=== PATIENT | female | born 2000 | race Caucasian/White ===

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

== ENCOUNTER 2021-02-09 21:28 | Emergency (ER) | payer OTHER ==
[2021-02-09 21:35] VITALS: BP 116/69; PULSE 81; RESP 16; TEMP 98.2
[2021-02-09 22:01] LABS: Appearance,Urine Clear (Clear); Bilirubin,Urine Negative (Negative); Blood,Urine Trace (Negative); Color,Urine Yellow; Glucose,Urine (UA) Negative (Negative); Ketones,Urine Negative (Negative); Leukocyte Esterase,Urine Negative (Negative); Mucus,Urine Rare /hpf; Nitrite,Urine Negative (Negative); PH, Urine 5.5 (5.0-8.0); Protein,Urine Negative (Negative); RBC,Urine 2 /hpf (0-5); Specific Gravity,Urine 1.016 (1.001-1.035); Squamous Epithelial Cell,Urine 4 /hpf (0-4); Urobilinogen,Urine <2.0 mg/dL (<2.0); WBC,Urine 6 /hpf (0-5)
[2021-02-09] MEDS ORDERED: CEPHALEXIN 500 MG CAP PO STA (22:29)
[2021-02-09] MEDS ORDERED: PHENAZOPYRIDINE 200 MG TAB PO STA (22:29)
--- NOTE | 2021-02-09 22:31 | ED ---
Female Urogenital HPI - General Chief complaint: Urogenital Stated complaint: Poss UTI Source: patient Mode of arrival: ambulatory - History of Present Illness Initial comments: 20-year-old female who presents emergency room with reported UTI symptoms. States she's had increased frequency of urination as well as dysuria. Symptoms started today. Has not taken any medications at home for her symptoms. She denies fevers, chills, nausea or vomiting. No flank pain. No abnormal vaginal bleeding or discharge. No concern for . Denies concern for such transmitted infections. No diarrhea, constipation, melenic stools or hematochezia. No other alleviating, precipitating or modifying factors Last Menstrual Period: 02/08/21 - Related Data Home Medications Medication Instructions Recorded Confirmed Norgestimate-Ethinyl Estradiol 1 tab PO HS 01/16/17 02/23/18 [Tri-Sprintec Tablet] Escitalopram [Lexapro] 10 mg PO DAILY 02/23/18 02/23/18 Previous Rx's Medication Instructions Recorded Cephalexin [Keflex] 500 mg PO Q12HR 1 Days #14 cap 02/09/21 Phenazopyridine [Pyridium] 200 mg PO TID #6 tablet 02/09/21 Allergies Allergy/AdvReac Type Severity Reaction Status Date / Time No Known Allergies Allergy Verified 02/09/21 21:35 Review of Systems ROS Statement: Those systems with pertinent positive or pertinent negative responses have been documented in the HPI. ROS Other: All systems not noted in ROS Statement are negative. Past Medical History Past Medical History: GERD/Reflux Additional Past Medical History / Comment(s): headaches History of Any Multi-Drug Resistant Organisms: None Reported Past Surgical History: No Surgical Hx Reported Past Psychological History: Depression Smoking Status: Never smoker Past Alcohol Use History: None Reported Past Drug Use History: None Reported Course Vital Signs 02/09/21 21:32 Temperature 98.2 F Pulse Rate 81 Respiratory 16 Rate Blood Pressure 116/69 O2 Sat by Pulse 100 Oximetry Medical Decision Making - Medical Decision Making Upon arrival patient was placed into the hallway. She does provide a urine sample. I discussed diagnosis, differential and treatment options. Patient will be given a dose of antibiotics for her abnormal UA. Specimen will be sent for urine culture. I did discuss the need to follow up with her primary care doctor to ensure improvement in her symptoms. Offered pelvic exam and STD check however the patient refused. She is to return to the emergency room for any new or worsening symptoms per patient was discharged home to condition - Lab Data Lab Results 02/09/21 Range/Units 21:38 Urine Color Yellow Urine Appearance Clear (Clear) Urine pH 5.5 (5.0-8.0) Ur Specific [place] 1.016 (1.001-1.035) Urine Protein Negative (Negative) Urine Glucose (UA) Negative (Negative) Urine Ketones Negative (Negative) Urine Blood Trace H (Negative) Urine Nitrite Negative (Negative) Urine Bilirubin Negative (Negative) Urine Urobilinogen <2.0 (<2.0) mg/dL Ur Leukocyte Esterase Negative (Negative) Urine RBC 2 (0-5) /hpf Urine WBC 6 H (0-5) /hpf Ur Squamous Epith Cells 4 (0-4) /hpf Urine Mucus Rare H (None) /hpf Disposition Clinical Impression: Dysuria, Abnormal urinalysis Disposition: HOME SELF-CARE Condition: Stable Instructions (If sedation given, give patient instructions): Urinary Tract Infection in Women (ED) Additional Instructions: Please follow up with your doctor in 2-4 days to ensure your symptoms improve. Return to the ED for any new or worsening symptoms. Prescriptions: Cephalexin [Keflex] 500 mg PO Q12HR 1 Days #14 cap Phenazopyridine [Pyridium] 200 mg PO TID #6 tablet Is patient prescribed a controlled substance at d/c from ED?: No Referrals: Josiah Kathleen DO [Primary Care Provider] - 1-2 days Time of Disposition: 22:31
== END 2021-02-09 22:51 | disposition home or self-care (01) ==
LOC: EC 21:28
DX: R30.0 Dysuria (principal); R82.90 Unspecified abnormal findings in urine; K21.9 Gastro-esophageal reflux disease without esophagitis; F32.9 Major depressive disorder, single episode, unspecified; Z79.899 Other long term (current) drug therapy
CPT/HCPCS: 81001; 81025; 99283

== ENCOUNTER 2021-04-29 11:47 | Emergency (ER) | payer OTHER ==
[2021-04-29 12:40] VITALS: BP 107/71; PULSE 84; RESP 20; TEMP 98.5
[2021-04-29 12:52] LABS: Appearance,Urine Clear (Clear); Bacteria,Urine Rare /hpf; Bilirubin,Urine Negative (Negative); Blood,Urine Trace (Negative); Color,Urine Light Yellow; Glucose,Urine (UA) Negative (Negative); Ketones,Urine Negative (Negative); Leukocyte Esterase,Urine Moderate (Negative); Nitrite,Urine Negative (Negative); Protein,Urine Negative (Negative); RBC,Urine 1 /hpf (0-5); Specific Gravity,Urine 1.009 (1.001-1.035); Squamous Epithelial Cell,Urine 5 /hpf (0-4); Urobilinogen,Urine <2.0 mg/dL (<2.0); WBC,Urine 3 /hpf (0-5)
--- NOTE | 2021-04-29 15:20 | ED ---
General Adult HPI - General Chief complaint: Abdominal Pain Stated complaint: Kamara pain on left side Time Seen by Provider: 04/29/21 15:00 Source: patient Mode of arrival: ambulatory Limitations: no limitations - History of Present Illness Initial comments: 20-year-old female presents to the emergency Department with complaints of left- sided rib pain. Patient states the pain has been ongoing for a week. Denies injury or trauma. Pain worsens with exertional activity and palpation; pain- free at rest. States she did not take anything for pain prior to arrival, and declines any at this time. Patient denies difficulty breathing or pain with deep inspiration. Denies cough, fever, chills, shortness of breath, or nausea and vomiting. - Related Data Home Medications Medication Instructions Recorded Confirmed Norgestimate-Ethinyl Estradiol 1 tab PO HS 01/16/17 02/23/18 [Tri-Sprintec Tablet] Escitalopram [Lexapro] 10 mg PO DAILY 02/23/18 02/23/18 Previous Rx's Medication Instructions Recorded Cephalexin [Keflex] 500 mg PO Q12HR 1 Days #14 cap 02/09/21 Phenazopyridine [Pyridium] 200 mg PO TID #6 tablet 02/09/21 Ibuprofen 600 mg PO Q6H PRN #20 tab 04/29/21 Allergies Allergy/AdvReac Type Severity Reaction Status Date / Time No Known Allergies Allergy Verified 04/29/21 12:40 Review of Systems ROS Statement: Those systems with pertinent positive or pertinent negative responses have been documented in the HPI. ROS Other: All systems not noted in ROS Statement are negative. Past Medical History Past Medical History: GERD/Reflux Additional Past Medical History / Comment(s): headaches History of Any Multi-Drug Resistant Organisms: None Reported Past Surgical History: No Surgical Hx Reported Past Psychological History: Depression Smoking Status: Vaper Past Alcohol Use History: None Reported Past Drug Use History: None Reported General Exam Limitations: no limitations (Well-developed, well-nourished female in no acute distress. Initial temperature 98.5, pulse 84, respirations 20, blood pressure 107/71, pulse ox 99% on room air.) General appearance: alert, in no apparent distress Neck exam: Present: normal inspection. Absent: tenderness, meningismus, lymphadenopathy Respiratory exam: Present: normal lung sounds bilaterally, chest wall tenderness (Left lower anterolateral chest wall tenderness along the 7th-9th rib line). Absent: respiratory distress, wheezes, rales, rhonchi, stridor, accessory muscle use, decreased breath sounds Cardiovascular Exam: Present: regular rate, normal rhythm, normal heart sounds. Absent: systolic murmur, diastolic murmur, rubs, gallop, clicks GI/Abdominal exam: Present: soft, normal bowel sounds. Absent: distended, tenderness, guarding, rebound, rigid Extremities exam: Present: normal inspection, full ROM, normal capillary refill. Absent: tenderness, pedal edema, joint swelling, calf tenderness Back exam: Present: normal inspection, full ROM. Absent: CVA tenderness (R), CVA tenderness (L) Neurological exam: Present: alert, oriented X3, CN II-XII intact Psychiatric exam: Present: normal affect, normal mood Skin exam: Present: warm, dry, intact, normal color. Absent: rash Course Vital Signs 04/29/21 12:38 Temperature 98.5 F Pulse Rate 84 Respiratory 20 Rate Blood Pressure 107/71 O2 Sat by Pulse 99 Oximetry Medical Decision Making - Medical Decision Making 20-year-old well-appearing female is evaluated for left anterolateral chest wall and rib pain. Upon exam, patient reports tenderness upon palpation to the seventh, eighth, and ninth ribs extending from the mid clavicular line to the mid axillary line. Pain is also reproducible with movement of the left upper extremity. Patient does not have any increased work of breathing; lung sounds are clear to auscultation. X-ray of the left ribs and chest was obtained showing no acute process. This patient's case was discussed with my attending Dr. Estes. Patient will be discharged home to follow up with her primary care provider. Will be prescribed Motrin for pain as needed. Return parameters were discussed in detail. Patient verbalizes understanding and agrees with this plan. - Lab Data Lab Results 04/29/21 04/29/21 Range/Units 12:42 12:42 Urine Color Light Yellow Urine Appearance Clear (Clear) Urine pH 6.0 (5.0-8.0) Ur Specific [place] 1.009 (1.001-1.035) Urine Protein Negative (Negative) Urine Glucose (UA) Negative (Negative) Urine Ketones Negative (Negative) Urine Blood Trace H (Negative) Urine Nitrite Negative (Negative) Urine Bilirubin Negative (Negative) Urine Urobilinogen <2.0 (<2.0) mg/dL Ur Leukocyte Esterase Moderate H (Negative) Urine RBC 1 (0-5) /hpf Urine WBC 3 (0-5) /hpf Ur Squamous Epith Cells 5 H (0-4) /hpf Urine Bacteria Rare H (None) /hpf Urine HCG, Qual Not Detected (Not Detectd) - Radiology Data Radiology results: report reviewed, image reviewed Chest x-ray with left ribs was obtained. Report was reviewed in its entirety. Impression per Dr. Blake as no acute abnormality. Disposition Clinical Impression: Left-sided chest wall pain Disposition: HOME SELF-CARE Condition: Stable Instructions (If sedation given, give patient instructions): Costochondritis (ED) Additional Instructions: Rest. Take Motrin as needed. Follow-up with her primary care provider for a recheck in the next 1-2 days. Return to the emergency department with any new, worsening, or concerning symptoms. Prescriptions: Ibuprofen 600 mg PO Q6H PRN #20 tab PRN Reason: Pain/Discomfort Is patient prescribed a controlled substance at d/c from ED?: No Referrals: Josiah Kathleen DO [Primary Care Provider] - 1-2 days Time of Disposition: 16:30
--- NOTE | 2021-04-29 16:02 | XR ---
Chest x-ray with left RIBS HISTORY: Left rib pain for one week Frontal view of the chest, 4 views of the left ribs submitted correlated prior chest x-ray 11/20/2012 Chest x-ray shows no acute cardiopulmonary disease. There is no evident rib fracture, bone mineraliza tion is maintained, there is a spinal curvature. There are overlying artifacts. IMPRESSION: No acute abnormality. Bone scan limited benefit to assess for occult abnormality as indic ated. Spinal curvature.
== END 2021-04-29 16:41 | disposition home or self-care (01) ==
LOC: EC 11:47
DX: R07.81 Pleurodynia (principal); K21.9 Gastro-esophageal reflux disease without esophagitis; F32.9 Major depressive disorder, single episode, unspecified; F17.290 Nicotine dependence, other tobacco product, uncomplicated
CPT/HCPCS: 81001; 81025; 99285

== ENCOUNTER 2021-12-26 17:09 | Emergency (ER) | payer OTHER ==
--- NOTE | 2021-12-26 18:01 | ED ---
General Adult HPI - General Chief complaint: Extremity Injury, Lower Stated complaint: lump on rt foot Time Seen by Provider: 12/26/21 17:40 Source: patient, RN notes reviewed, old records reviewed Mode of arrival: ambulatory Limitations: no limitations - History of Present Illness Initial comments: 21-year-old female presents with right foot pain. 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 She didn't reinjure the foot again yesterday. The original injury occurred several days ago. She has noted some pain and swelling on the top of the foot. No fever or chills, no erythema, she has been resting the foot, elevating and icing. She is not currently taking any medication. - Related Data Home Medications Medication Instructions Recorded Confirmed norgestimate-ethinyl estradioL 1 tab PO HS 01/16/17 02/23/18 [Tri-Sprintec Tablet] Escitalopram [Lexapro] 10 mg PO DAILY 02/23/18 02/23/18 Previous Rx's Medication Instructions Recorded Cephalexin [Keflex] 500 mg PO Q12HR 1 Days #14 cap 02/09/21 Phenazopyridine [Pyridium] 200 mg PO TID #6 tablet 02/09/21 Ibuprofen 600 mg PO Q6H PRN #20 tab 04/29/21 Ibuprofen [Motrin] 600 mg PO Q8HR PRN #24 tab 12/26/21 Allergies Allergy/AdvReac Type Severity Reaction Status Date / Time No Known Allergies Allergy Verified 12/26/21 17:19 Review of Systems ROS Statement: Those systems with pertinent positive or pertinent negative responses have been documented in the HPI. ROS Other: All systems not noted in ROS Statement are negative. Past Medical History Past Medical History: GERD/Reflux Additional Past Medical History / Comment(s): headaches History of Any Multi-Drug Resistant Organisms: None Reported Past Surgical History: No Surgical Hx Reported Past Psychological History: Depression Smoking Status: Vaper Past Alcohol Use History: None Reported Past Drug Use History: None Reported General Exam Limitations: no limitations General appearance: alert, in no apparent distress Head exam: Present: atraumatic, normocephalic Eye exam: Present: normal appearance, PERRL ENT exam: Present: normal exam Neck exam: Present: normal inspection. Absent: tenderness, meningismus Respiratory exam: Present: normal lung sounds bilaterally. Absent: respiratory distress, wheezes Cardiovascular Exam: Present: regular rate, normal rhythm GI/Abdominal exam: Absent: distended Extremities exam: Present: tenderness, other (Mild soft tissue swelling on the dorsal surface of the right foot. Distal pulses are intact, range of motion at the toes is within normal limits. There is no associated erythema. No gross deformity.) Neurological exam: Present: alert, oriented X3, CN II-XII intact. Absent: motor sensory deficit Psychiatric exam: Present: normal affect, normal mood Skin exam: Present: warm, dry Course Vital Signs 12/26/21 17:17 Temperature 98.9 F Pulse Rate 97 Respiratory 16 Rate Blood Pressure 115/69 O2 Sat by Pulse 100 Oximetry Procedures - Orthopedic Splinting/Casting Injury #1 Side: right Lower Extremity Injury Location: foot Lower Extremity Immobilizer: Amari wrap Medical Decision Making - Medical Decision Making X-ray performed, negative for acute fracture or dislocation. Likely foot sprain. Patient placed in an amari wrap and will follow with her primary care physician. She may require repeat imaging if symptoms persist. She should take Motrin for pain and inflammation. She should rest and elevate and apply ice. Disposition Clinical Impression: Sprain of foot, right Disposition: HOME SELF-CARE Condition: Good Instructions (If sedation given, give patient instructions): Foot Sprain (ED) Prescriptions: Ibuprofen [Motrin] 600 mg PO Q8HR PRN #24 tab PRN Reason: Pain Is patient prescribed a controlled substance at d/c from ED?: No Referrals: Josiah Kathleen DO [Primary Care Provider] - 1-2 days Time of Disposition: 18:00
--- NOTE | 2021-12-26 18:02 | XR ---
EXAMINATION TYPE: XR foot complete RT DATE OF EXAM: 12/26/2021 COMPARISON: NONE HISTORY: Fall. Foot pain TECHNIQUE: 3 view FINDINGS: Metatarsals are intact. I see no fracture nor dislocation. Joint spaces are normal. There a re no erosions. IMPRESSION: Negative right foot exam. No fracture.
[2021-12-26 18:30] VITALS: BP 112/65; PULSE 90; RESP 20; TEMP 98.1
== END 2021-12-26 18:28 | disposition home or self-care (01) ==
LOC: EC 17:09
DX: S93.601A Unspecified sprain of right foot, initial encounter (principal); F17.209 Nicotine dependence, unspecified, with unspecified nicotine-induced disorders; W50.0XXA Accidental hit or strike by another person, initial encounter
CPT/HCPCS: 29515; 99283

== ENCOUNTER 2024-05-26 09:10 | Inpatient (IN) | payer OTHER ==
[2024-05-26] MEDS ORDERED: CARBOPROST TROMETHAMINE 250 MCG/ML 1 ML AMP IM PRN (09:23)
[2024-05-26] MEDS ORDERED: TERBUTALINE 1 MG/ML VIAL SQ PRN (09:23)
[2024-05-26] MEDS ORDERED: TRANEXAMIC 1,000 MG/100ML-NACL 1,000 MG in EMPTY BAG 1 BAG IV PRN (09:23)
[2024-05-26] MEDS ORDERED: METHYLERGONOVINE 0.2 MG/ML 1 ML AMP IM PRN (09:23)
[2024-05-26] MEDS ORDERED: OXYTOCIN 10 UNIT/ML 1 ML VIAL IM PRN (09:23)
[2024-05-26] MEDS ORDERED: miSOPROStoL 200 MCG TAB RECTAL PRN (09:23)
[2024-05-26] MEDS ORDERED: miSOPROStoL 200 MCG TAB PO PRN (09:23)
[2024-05-26] MEDS ORDERED: OXYTOCIN 30 UNITS/500 ML NS 30 UNIT in SALINE 1 500ML.BAG IV SCH (09:30)
[2024-05-26] MEDS: LACTATED RINGERS 1,000 ML IV SCH (09:52)
[2024-05-26 10:16] LABS: Basophils % (A) 0 %; Eosinophils % (A) 0 %; HCT 37.8 % (34.0-46.0); HGB 12.2 gm/dL (11.4-16.0); Lymphocytes # (A) 1.6 k/uL (1.0-4.8); Lymphocytes % (A) 8 %; MCH 27.7 pg (25.0-35.0); MCHC 32.4 g/dL (31.0-37.0); MCV 85.5 fL (80.0-100.0); Mean Platelet Volume 7.4; Monocytes # (A) 0.6 k/uL (0-1.0); Monocytes % (A) 3 %; Neutrophils # (A) 16.8 k/uL (1.3-7.7); Neutrophils % (A) 87 %; Platelet Count 268 k/uL (150-450); RBC 4.42 m/uL (3.80-5.40); RDW 14.3 % (11.5-15.5); WBC 19.2 k/uL (3.8-10.6)
--- NOTE | 2024-05-26 10:24 | P.HPOB ---
History of Present Illness H&P Date: 05/26/24 Chief Complaint: labor Ms. Carlson is a 24 year old at 40 weeks and 2 days with EDC of 05/24/2024 by LMP and 1st trimester US who presents in labor. She was evaluated in triage approximately 5 hours ago and was sent home after remaining 3 cm on recheck. She then returned to triage this morning with more intense contractions, nausea and vomiting, and was found to be 5 cm dilated, 90% effaced, with a bulging bag. Her has been essentially uncomplicated. The fetus is estimated to be 8 pounds and 3 ounces with extrapolation from a 36 week US at which time the fetus was in the 50%ile for growth. labs: blood type O positive, antibody screen negative, rubella immune, VDRL non-reactive, HBsAg negative, HIV negative, HCV non-reactive, gonorrhea negative, chlamydia negative, 1 hour GTT wnl, GBS negative. Past Medical History Past Medical History: GERD/Reflux Additional Past Medical History / Comment(s): headaches History of Any Multi-Drug Resistant Organisms: None Reported Past Surgical History: No Surgical Hx Reported Past Anesthesia/Blood Transfusion Reactions: No Reported Reaction Past Psychological History: Depression Smoking Status: Never smoker Past Alcohol Use History: None Reported Past Drug Use History: None Reported - Past Family History Mother Family Medical History: No Reported History Medications and Allergies Home Medications Medication Instructions Recorded Confirmed Type Vit No.179/Iron/Folic 1 tab PO DAILY 05/26/24 05/26/24 History [ Tablet] Allergies Allergy/AdvReac Type Severity Reaction Status Date / Time No Known Allergies Allergy Verified 12/26/21 17:19 Exam Vital Signs Temp Pulse Resp BP Pulse Ox 05/26/24 09:53 96.8 F L 109 H 18 124/77 97 Intake and Output 05/25/24 05/26/24 05/26/24 22:59 06:59 14:59 Other: Weight 92.986 kg Focused physical exam is performed. This is a healthy-appearing in no apparent distress. Breathing is non-labored. Abdomen is gravid and non-tender. Cervical exam is 5 cm, 90% effacement, -1 station per the OB RN. Extremities non-tender and non-edematous. heart tones are Category I and tocometer is graphing contractions every 2-4 minutes. Assessment and Plan Assessment: 24 year old at 40 weeks and 2 days presenting in labor Plan: Admit, clear liquid diet, epidural prn, continuous EFM and tocometer. Expectant management at this time. Will augment as needed.
[2024-05-26] MEDS ORDERED: SODIUM CHLORIDE 0.9% 250 ML BAG ONE (10:28)
[2024-05-26] MEDS ORDERED: fentaNYL (PF) 50 MCG/ML 5 ML AMP ONE (10:28)
[2024-05-26] MEDS ORDERED: ROPIVACAINE 5 MG/ML 30 ML VIAL ONE (10:28)
[2024-05-26] MEDS: OXYTOCIN 30 UNITS/500 ML NS 30 UNIT in SALINE 1 500ML.BAG IV SCH (12:46)
[2024-05-26] MEDS: LIDOCAINE 0.5% (PF) 5 MG/ML (50 ML SDV) SQ PRN (18:15)
[2024-05-26] MEDS ORDERED: diphenhydrAMINE 50 MG CAP PO PRN (18:33)
[2024-05-26] MEDS ORDERED: diphenhydrAMINE 50 MG/ML 1 ML VIAL IVP PRN ×2 (18:33)
[2024-05-26] MEDS ORDERED: diphenhydrAMINE 25 MG CAP PO PRN (18:33)
[2024-05-26] MEDS ORDERED: HYDROCORTISONE 2.5% RECTAL CREAM 30 GM TUBE RECTAL PRN (18:33)
[2024-05-26] MEDS ORDERED: BENZOCAINE/MENTHOL SPRAY 1 GM/SPRAY AEROSOL TOPICAL PRN (18:33)
[2024-05-26] MEDS ORDERED: SIMETHICONE 80 MG CHEWABLE PO PRN (18:33)
[2024-05-26] MEDS ORDERED: LANOLIN CREAM 1 GM TUBE TOPICAL PRN (18:33)
[2024-05-26] MEDS ORDERED: ZOLPIDEM 5 MG TAB PO PRN (18:33)
--- NOTE | 2024-05-26 18:33 | P.PROBDLV ---
Vaginal Delivery Note - . Vaginal Delivery Note: DATE OF SERVICE: 05/26/2024 PROCEDURE: Normal Vaginal Delivery ATTENDING: Dr. April Rjaput MD ESTIMATED BLOOD LOSS: 200 mL FINDINGS: VFI, Apgars 9/10. Weight 7 pounds and 3 ounces (3280 grams) PROCEDURE: Ms. Carlson is a 24 year old at 40 weeks and 2 days presenting to labor and delivery in labor. The has been essentially uncomplicated. For further details, please review the admitting H&P. Epidural anesthesia was obtained per patient request. AROM was undertaken at 1122 revealing clear amniotic fluid. The patient was completely dilated at 1741. The patient pushed effectively with Category I heart tones throughout. A viable female was delivered at 1804 over an intact perineum. The infant was placed on the maternal abdomen and bulb suctioned. The was noted to be spontaneously crying. Cord was clamped and cut after a 60-second delay. The infant was handed off to the pediatric team. Placenta was delivered whole with gentle cord traction at 1810. Oxytocin was started to facilitate uterine tone. Uterine fundus was found to be firm and below the umbilicus upon fundal massage. Thorough examination of the cervix, vagina, periurethral area, and perineum revealed hemostatic periurethral lacerations and a large right sulcal laceration. The vagina was infiltrated with lidocaine and the sulcal laceration was repaired with 2-0 and 3-0 Vicryl in a running fashion. The patient is stable and allowed to begin the bonding process.
[2024-05-26] MEDS: IBUPROFEN 800 MG TAB PO SCH (19:00)
[2024-05-26] MEDS: SENNOSIDES-DOCUSATE SODIUM 1 EACH TAB PO SCH (20:00)
[2024-05-27] MEDS: ACETAMINOPHEN TAB 500 MG TAB PO SCH
[2024-05-27 08:22] VITALS: RESP 15
[2024-05-27 08:40] LABS: Basophils % (A) 0 %; Eosinophils % (A) 0 %; HCT 31.3 % (34.0-46.0); HGB 10.3 gm/dL (11.4-16.0); Lymphocytes # (A) 1.9 k/uL (1.0-4.8); Lymphocytes % (A) 9 %; MCH 28.2 pg (25.0-35.0); MCHC 32.8 g/dL (31.0-37.0); MCV 86.1 fL (80.0-100.0); Mean Platelet Volume 7.5; Monocytes # (A) 0.8 k/uL (0-1.0); Monocytes % (A) 4 %; Neutrophils # (A) 18.3 k/uL (1.3-7.7); Neutrophils % (A) 85 %; Platelet Count 240 k/uL (150-450); RBC 3.64 m/uL (3.80-5.40); RDW 14.3 % (11.5-15.5); WBC 21.5 k/uL (3.8-10.6)
--- NOTE | 2024-05-27 10:11 | P.DS ---
Providers Date of admission: 05/26/24 09:19 Expected date of discharge: 05/27/24 Attending physician: Princess Padilla Primary care physician: Stated None Hospital Course: Ms. Carlson is a 24 year old now PPD#1 s/p normal spontaneous vaginal delivery without complications. Her labor and delivery were uncomplicated. She did sustain lateral vaginal sulcal laceration that was repaired without difficulty. She is meeting all milestones in the course and desires discharge home today. The patient is doing well this morning and had no acute events overnight. She has no complaints this morning. She reports minimal lochia, passing flatus, voiding without difficulty, ambulating, and eating/drinking without nausea or vomiting. doing well at bedside, bottle feeding. She denies chest pain, shortness of breathing, fevers, or chills overnight. She denies pain or swelling in the legs. restrictions are reviewed with the patient including pelvic rest for 6 weeks. The patient is encouraged to call the office if she experiences any heavy bleeding, foul- smelling discharge, breast complaints, or any if she has any other concerns. She will follow up in the office with Dr. Padilla in 6 weeks for exam. She requests Motrin and Tylenol to be sent to her pharmacy. All questions are answered. Assessment: 24 year old PPD#1 s/p Patient Condition at Discharge: Good Plan - Discharge Summary New Discharge Prescriptions: New Acetaminophen Tab [Tylenol] 650 mg PO Q6H PRN #30 tab PRN Reason: Mild Pain (Scale 1 To 3) Ibuprofen [Motrin] 600 mg PO Q6HR PRN #30 tab PRN Reason: Mild Pain (Scale 1 To 3) No Action Vit No.179/Iron/Folic [ Tablet] 1 tab PO DAILY Discharge Medication List Vit No.179/Iron/Folic [ Tablet] 1 tab PO DAILY 05/26/24 [History] Acetaminophen Tab [Tylenol] 650 mg PO Q6H PRN #30 tab 05/27/24 [Rx] Ibuprofen [Motrin] 600 mg PO Q6HR PRN #30 tab 05/27/24 [Rx] Follow up Appointment(s)/Referral(s): Princess Padilla DO [Doctor of Osteopathic Medicine] - 6 Weeks Activity/Diet/Wound Care/Special Instructions: Instructions 1. Do not begin any exercise program for 3 weeks. 2. Do not resume sexual relations for 6 weeks or longer if uncomfortable. 3. You may take tub baths or showers at any time. 4. You may use tampons if desired after 6 weeks. 5. Keep any areas repaired with stitches clean and dry. 6. If you are not nursing, wear a good fitting, supportive bra during the day and limit fluid intake for at least 1 week to prevent breast engorgement. 7. Call the office, , within the next week to make appointment for your 6 week checkup if it has not already been made. 8. Report any of the following occurrences to the doctor promptly: a. Heavy, excessive bleeding b. Chills, fever c. Burning or frequency of urination d. Pain or redness and breasts if nursing e. Increasing pain or swelling of vulva (stitches). In addition to the above instructions, the following additional should be followed: 1. No heavy lifting or straining (exercising) until after 6 week checkup. 2. Keep abdominal incision clean and dry: You may wear a dressing if more comf ortable. 3. Make office appointment for 2 weeks after delivery date. Discharge Disposition: HOME SELF-CARE
[2024-05-27 12:25] VITALS: BP 106/69; PULSE 99; TEMP 98.1
== END 2024-05-27 19:03 | disposition home or self-care (01) | DRG 560 ==
LOC: FBPOP 09:10 → 4FBP 09:19
PROVIDERS: ADMIT Obstetrics & Gynecology; ATTEND Obstetrics & Gynecology
PROC: 10E0XZZ Delivery of Products of Conception, External Approach (ICD-10-PCS; principal; 2024-05-26)
PROC: 10907ZC Drainage of Amniotic Fluid, Therapeutic from Products of Conception, Via Natural or Artificial Opening (ICD-10-PCS; 2024-05-26)
PROC: 0KQM0ZZ Repair Perineum Muscle, Open Approach (ICD-10-PCS; 2024-05-26)
PROC: 4A1HXCZ Monitoring of Products of Conception, Cardiac Rate, External Approach (ICD-10-PCS; 2024-05-26)
DX: O48.0 Post-term pregnancy (principal); Z37.0 Single live birth; O71.4 Obstetric high vaginal laceration alone; Z3A.40 40 weeks gestation of pregnancy; O71.82 Other specified trauma to perineum and vulva; R11.2 Nausea with vomiting, unspecified
CPT/HCPCS: 85025; 86850; 86900; 86901